=== PATIENT | male | born 1950 | race Caucasian/White ===

== ENCOUNTER → 2017-10-17 | Day surgery (SDC) | payer MEDICARE, OTHER ==
[~2017-10-17] MED LIST: HYDR25TA9 PO; IV RINGERS SOLUTION,LACTATED 1,000 ML IV SCH; LIDOCAINE 1% PF 2 ML VIAL. ID PRN; LISI40TA PO; PROPOFOL 10,000 MCG/ML (20ML) VIAL IV ONE; PROPOFOL 40 ML IV ONE
[2017-10-17 10:27] VITALS: BP 119/87
== END | disposition home or self-care (01) ==
LOC: SURG 07:43
PROVIDERS: ATTEND Internal Medicine Gastroenterology
DX: Z12.11 Encounter for screening for malignant neoplasm of colon (principal); K63.5 Polyp of colon; K50.90 Crohn's disease, unspecified, without complications; I10 Essential (primary) hypertension; Z90.49 Acquired absence of other specified parts of digestive tract; Z98.890 Other specified postprocedural states; Z79.899 Other long term (current) drug therapy
CPT/HCPCS: 45385; J2704; J7120